=== PATIENT | female | born 1955 | race Caucasian/White ===

== ENCOUNTER 2016-10-11 14:52 | Inpatient (IN) | payer MEDICAID ==
[~2016-10-11] VITALS: Ht 177.8 cm; Wt 65.1 kg
[2016-10-11] MEDS ORDERED: DILTIAZEM 125 MG in DEXTROSE 5% 100 ML IV SCH (15:14)
[2016-10-11] MEDS ORDERED: OXYC10TA6 PO (15:18)
[2016-10-11] MEDS ORDERED: CITA40TA12 PO (15:18)
[2016-10-11] MEDS ORDERED: MORP-52 PO (15:18)
[2016-10-11] MEDS ORDERED: LORazepam 2 MG/ML, 1ML ONE (15:25)
[2016-10-11] MEDS ORDERED: DILTIAZEM 5 MG/ML, 5ML ONE (15:25)
[2016-10-11] MEDS ORDERED: LORazepam 2 MG/ML, 1ML IVPush ONE (15:30)
[2016-10-11] MEDS ORDERED: SODIUM CHLORIDE FLUSH 10ML SYR IVF ONE (15:30)
[2016-10-11] MEDS ORDERED: SODIUM CHLORIDE 0.9% 1,000ML IVBOLUS ONE (15:30)
[2016-10-11] MEDS ORDERED: DILTIAZEM 5 MG/ML, 5ML IV ONE (15:30)
[2016-10-11 15:35] LABS: HEMATOCRIT 45.3 % (34.6-47.8); HEMOGLOBIN 15.1 g/dL (11.7-16.4); WHITE BLOOD COUNT 11.2 x10^3/uL (3.4-10)
[2016-10-11 15:43] LABS: BLOOD UREA NITROGEN 17 mg/dL (7-18)
[2016-10-11 15:48] LABS: ASPARTATE AMINO TRANSFERASE 18 U/L (15-37)
[2016-10-11 15:49] LABS: IS PT STATUS REG ER OR PRE ER? YES
[2016-10-11] MEDS ORDERED: ASPIRIN 325 MG TABLET PO ONE (16:00)
[2016-10-11] MEDS ORDERED: METOCLOPRAMIDE 5 MG/ML, 2ML IVPush ONE (16:00)
[2016-10-11] MEDS ORDERED: ASPIRIN 325 MG TABLET ONE (16:10)
[2016-10-11] MEDS ORDERED: METOCLOPRAMIDE 5 MG/ML, 2ML ONE (16:10)
[2016-10-11] MEDS: OXYcodone IR 5MG TABLET PO SCH ×2 (18:00→21:07)
[2016-10-11] MEDS ORDERED: ONDANSETRON 2MG/ML, 2ML IVPush PRN (18:00)
[2016-10-11] MEDS ORDERED: ONDANSETRON ODT 4 MG PO PRN (18:00)
[2016-10-11] MEDS ORDERED: morphine SULFATE 10 MG/ML, 1ML IVPush PRN (18:00)
[2016-10-11] MEDS ORDERED: BISACODYL 10 MG SUPP PR PRN (18:00)
[2016-10-11] MEDS ORDERED: ACETAMINOPHEN 325 MG TABLET PO PRN (18:00)
[2016-10-11] MEDS ORDERED: LORazepam 1MG TABLET PO PRN (18:00)
[2016-10-11] MEDS ORDERED: NITROGLYCERIN 0.4 MG/SPRAY SL PRN (18:00)
[2016-10-11] MEDS ORDERED: POLYETHYLENE GLYCOL 17 GM PACKET PO PRN (18:00)
[2016-10-11] MEDS ORDERED: DILTIAZEM 5 MG/ML, 5ML IVPush PRN (18:00)
[2016-10-11] MEDS ORDERED: LABETALOL 5MG/ML, 20ML IVPush PRN (18:00)
[2016-10-11] MEDS ORDERED: DOCUSATE 100 MG CAPSULE PO PRN (18:00)
[2016-10-11] MEDS ORDERED: HEPARIN 25,000 UNITS/500ML PMX 500 ML IV PRN (19:30)
[2016-10-11] MEDS ORDERED: HEPARIN 5,000 UNITS/ML, 1ML IV PRN (19:30)
[2016-10-11] MEDS ORDERED: HEPARIN 5,000 UNITS/ML, 1ML IV ONE (19:30)
[2016-10-11 20:04] VITALS: BP 104/68
[2016-10-11 21:24] LABS: IS PT STATUS REG ER OR PRE ER? NO
[2016-10-12 03:04] VITALS: BP 132/73
[2016-10-12 03:41] LABS: HEMATOCRIT 36.7 % (34.6-47.8); HEMOGLOBIN 11.9 g/dL (11.7-16.4); WHITE BLOOD COUNT 7.9 x10^3/uL (3.4-10)
[2016-10-12 03:46] LABS: BLOOD UREA NITROGEN 18 mg/dL (7-18)
[2016-10-12 03:52] LABS: IS PT STATUS REG ER OR PRE ER? NO
[2016-10-12] MEDS: OXYcodone IR 5MG TABLET PO SCH (06:29)
[2016-10-12] MEDS ORDERED: PNEUMOCOCCAL 23 VACCINE IM-VACC ONE (07:30)
[2016-10-12 08:29] VITALS: BP 121/69
[2016-10-12] MEDS ORDERED: CITALOPRAM 20 MG TABLET PO SCH (09:00)
[2016-10-12] MEDS ORDERED: REGADENOSON 0.4 MG/5 ML SYRINGE ONE (10:36)
[2016-10-12] MEDS ORDERED: OXYcodone IR 5MG TABLET PO SCH (12:01)
[2016-10-12 13:51] VITALS: BP 126/69
[2016-10-12] MEDS ORDERED: METOPROLOL TARTRATE 25 MG TABLET PO SCH (15:00)
[2016-10-12] MEDS ORDERED: OXYC10TA6 PO (15:38)
[2016-10-12] MEDS ORDERED: ASPI-621 PO (15:38)
[2016-10-12] MEDS ORDERED: LORA-446 PO (15:38)
[2016-10-12] MEDS ORDERED: METO25TA35 PO (15:38)
[2016-10-13] MEDS ORDERED: ASPIRIN 81 MG TABLET EC PO SCH (06:00)
== END 2016-10-12 17:18 | disposition home or self-care (01) | DRG 309 ==
LOC: ED 16:32 → EDIP 16:58 → 5SO 19:03
PROVIDERS: ADMIT Internal Medicine; ATTEND Internal Medicine
DX: I48.0 Paroxysmal atrial fibrillation (principal); I24.9 Acute ischemic heart disease, unspecified; R07.89 Other chest pain; F32.9 Major depressive disorder, single episode, unspecified; F17.200 Nicotine dependence, unspecified, uncomplicated; M54.89 Other dorsalgia; G89.29 Other chronic pain; Z80.1 Family history of malignant neoplasm of trachea, bronchus and lung; Z82.49 Family history of ischemic heart disease and other diseases of the circulatory system; D72.829 Elevated white blood cell count, unspecified
CPT/HCPCS: 36415; 71010; 78452; 80048; 80053; 80061; 83735; 83880; 84439; 84443; 84484; 85025; 85520; 85610; 85730; 90732; 93005; 93017; 93306; 96361; 96374; 96375; J1644; J2785; A9502; C9898; J2060; J2765; J7030

== ENCOUNTER 2016-11-22 20:03 | Emergency (ER) | payer MEDICAID ==
[~2016-11-22] VITALS: Ht 172.7 cm; Wt 62.0 kg
[~2016-11-22 20:03] MED LIST: ASPI-621 PO; CITA40TA12 PO; LORA-446 PO; METO25TA35 PO; MORP-52 PO; OXYC10TA6 PO
[2016-11-22] MEDS ORDERED: SODIUM CHLORIDE FLUSH 10ML SYR IVF ONE (21:00)
[2016-11-22 21:25] LABS: HEMATOCRIT 43.9 % (34.6-47.8); HEMOGLOBIN 14.7 g/dL (11.7-16.4); WHITE BLOOD COUNT 7.5 x10^3/uL (3.4-10)
[2016-11-22] MEDS ORDERED: SODIUM CHLORIDE 0.9% 1,000ML IVBOLUS ONE (21:30)
[2016-11-22 21:33] LABS: BLOOD UREA NITROGEN 9 mg/dL (7-18)
[2016-11-22 21:37] LABS: IS PT STATUS REG ER OR PRE ER? YES
[2016-11-23 01:06] VITALS: BP 87/55
== END 2016-11-23 03:31 ==
LOC: ED 21:57
DX: R07.89 Other chest pain (principal); I48.91 Unspecified atrial fibrillation
CPT/HCPCS: 36415; 71010; 80048; 80307; 82040; 84484; 85025; 85610; 85730; 93005; 96360; 99285; J7030; G0479

== ENCOUNTER 2017-01-17 05:21 | Emergency (ER) | payer MEDICAID ==
[~2017-01-17] VITALS: Ht 175.3 cm; Wt 57.9 kg
[~2017-01-17 05:21] MED LIST changes: +ENOX60SY4 SC; +ENOX60SY4 SQ; +FOLI-17 PO; +MAGN400T26 PO; +MULT1TAB60 PO; +PANT40TA5 PO; +THIA100T6 PO; +WARF10TA PO-COUM; +WARF5TAB PO-COUM
[2017-01-17 05:24] VITALS: BP 93/54
[2017-01-17] MEDS ORDERED: KETOROLAC 30 MG/1 ML ONE (06:11)
[2017-01-17] MEDS ORDERED: OXYcodone/APAP 5/325MG TABLET ONE (06:11)
[2017-01-17] MEDS ORDERED: OXYcodone/APAP 5/325MG TABLET PO ONE (06:30)
[2017-01-17] MEDS ORDERED: KETOROLAC 30 MG/1 ML IM ONE (06:30)
== END 2017-01-17 06:38 | disposition home or self-care (01) ==
LOC: ED 06:05
DX: M54.5 Low back pain (principal); G89.29 Other chronic pain; I10 Essential (primary) hypertension; I48.91 Unspecified atrial fibrillation
CPT/HCPCS: 99283

== ENCOUNTER 2017-03-05 14:49 | Emergency (ER) | payer MEDICAID ==
[~2017-03-05] VITALS: Ht 177.8 cm; Wt 55.8 kg
[2017-03-05] MEDS ORDERED: SODIUM CHLORIDE 0.9% 1,000 ML IV ONE (15:22)
[2017-03-05] MEDS ORDERED: SODIUM CHLORIDE 0.9% 1,000ML IVBOLUS ONE ×2 (15:30→16:30)
[2017-03-05 16:05] LABS: BASOPHILS # (AUTO) 0.04 x10^3/uL (0-0.1); BASOPHILS % (AUTO) 0 % (0-1); EOSINOPHILS # (AUTO) 0.06 x10^3/uL (0-0.4); EOSINOPHILS % (AUTO) 1 % (1-7); LYMPHOCYTES # (AUTO) 3.36 x10^3/uL (1-3.4); LYMPHOCYTES % (AUTO) 31 % (22-44); MD NO; MEAN CORPUSCULAR HEMOGLOBIN 29.8 pg (27.0-34.8); MEAN CORPUSCULAR HGB CONC 32.8 g/dL (32.4-35.8); MEAN CORPUSCULAR VOLUME 90.8 fL (80-100); MEAN PLATELET VOLUME 8.4 fL (7.4-10.4); MONOCYTES # (AUTO) 1.14 x10^3/uL (0.2-0.8); MONOCYTES % (AUTO) 11 % (2-9); NEUTROPHILS # (AUTO) 6.26 x10^3/uL (1.8-6.8); NEUTROPHILS % (AUTO) 58 % (42-75); PLATELET COUNT 296 x10^3/uL (130-400); RED BLOOD COUNT 5.03 x10^6/uL (3.82-5.3); RED CELL DISTRIBUTION WIDTH 14.4 % (9.6-15.2)
[2017-03-05] MEDS ORDERED: ONDANSETRON 2MG/ML, 2ML ONE (16:12)
[2017-03-05 16:18] LABS: ALANINE AMINOTRANSFERASE 38 U/L (12-78); ALBUMIN 4.3 g/dL (3.4-5.0); ANION GAP 9 mmol/L (5-15); CALCIUM 9.6 mg/dL (8.5-10.1); CHLORIDE 102 mmol/L (98-107); CREATININE 1.11 mg/dL (0.55-1.02)
[2017-03-05 16:22] LABS: ALKALINE PHOSPHATASE 70 U/L (45-117); BILIRUBIN,TOTAL 1.4 mg/dL (0.2-1.0); TOTAL PROTEIN 7.7 g/dL (6.4-8.2); TROPONIN I < 0.015 ng/mL (0.000-0.045)
[2017-03-05] MEDS ORDERED: ONDANSETRON 2MG/ML, 2ML IVPush ONE (16:30)
[2017-03-05] MEDS ORDERED: morphine SULFATE 10 MG/ML, 1ML IVPush ONE (17:00)
[2017-03-05 17:04] LABS: CULTURE INDICATED? YES; MICROSCOPIC INDICATED
[2017-03-05] MEDS ORDERED: MORPHINE SULFATE 4 MG/ML, 1ML ONE (17:06)
[2017-03-05 18:15] VITALS: BP 85/47
== END 2017-03-05 19:10 | disposition left against medical advice (07) ==
LOC: ED 17:11
DX: R11.2 Nausea with vomiting, unspecified (principal); R19.7 Diarrhea, unspecified; I10 Essential (primary) hypertension; I48.91 Unspecified atrial fibrillation; Z86.711 Personal history of pulmonary embolism; R82.99 Other abnormal findings in urine
CPT/HCPCS: 36415; 71045; 71275; 76700; 80053; 81001; 83690; 84484; 85025; 87086; 93005; 96361; 96374; 96375; 99285; J2270; J2405; J7030

== ENCOUNTER 2017-04-15 15:25 | Emergency (ER) | payer MEDICAID ==
[2017-04-15] MEDS ORDERED: LORazepam 1MG TABLET PO ONE (16:00)
[2017-04-15] MEDS ORDERED: PLEASE ENTER HEIGHT AND WEIGHT MC SCH (16:30)
[2017-04-15 16:45] LABS: BASOPHILS # (AUTO) 0.04 x10^3/uL (0-0.1); BASOPHILS % (AUTO) 1 % (0-1); EOSINOPHILS # (AUTO) 0.07 x10^3/uL (0-0.4); EOSINOPHILS % (AUTO) 1 % (1-7); LYMPHOCYTES % (AUTO) 40 % (22-44); MD NO; MEAN CORPUSCULAR HEMOGLOBIN 30.5 pg (27.0-34.8); MEAN CORPUSCULAR HGB CONC 33.4 g/dL (32.4-35.8); MEAN CORPUSCULAR VOLUME 91.3 fL (80-100); MEAN PLATELET VOLUME 9.1 fL (7.4-10.4); MONOCYTES % (AUTO) 9 % (2-9); NEUTROPHILS # (AUTO) 2.73 x10^3/uL (1.8-6.8); NEUTROPHILS % (AUTO) 49 % (42-75); PLATELET COUNT 243 x10^3/uL (130-400); RED BLOOD COUNT 4.86 x10^6/uL (3.82-5.3); RED CELL DISTRIBUTION WIDTH 14.4 % (9.6-15.2)
[2017-04-15] MEDS ORDERED: LORazepam 1MG TABLET ONE (16:53)
[2017-04-15 16:59] LABS: ALBUMIN 3.6 g/dL (3.4-5.0); ANION GAP 8 mmol/L (5-15); CALCIUM 8.1 mg/dL (8.5-10.1); CHLORIDE 113 mmol/L (98-107); SALICYLATE LEVEL 4.6 mg/dL (2.8-20.0)
[2017-04-15 17:05] LABS: CREATININE 0.86 mg/dL (0.55-1.02); TROPONIN I < 0.015 ng/mL (0.000-0.045)
[2017-04-15 17:05] LABS: AMPHETAMINE SCREEN, URINE Negative (Negative); BARBITURATE SCREEN, URINE Negative (Negative); BENZODIAZEPINE SCREEN, URINE Negative (Negative); CANNABINOID SCREEN, URINE Negative (Negative); COCAINE SCREEN, URINE Negative (Negative); METHADONE SCREEN, URINE Negative (Negative); OPIATE SCREEN, URINE Negative (Negative)
[2017-04-15 17:11] LABS: ACETAMINOPHEN < 2 mcg/mL (10-30)
[2017-04-15 17:39] VITALS: BP 117/70
== END 2017-04-15 21:33 | disposition home or self-care (01) ==
LOC: ED 21:31
DX: F32.9 Major depressive disorder, single episode, unspecified (principal); R07.2 Precordial pain; Z79.899 Other long term (current) drug therapy; I10 Essential (primary) hypertension; I48.91 Unspecified atrial fibrillation
CPT/HCPCS: 36415; 71045; 80048; 80307; 80329; 82040; 84484; 85025; 93005; 99285; G0480

== ENCOUNTER 2017-05-13 19:30 | Emergency (ER) | payer MEDICAID ==
[~2017-05-13] VITALS: Ht 175.3 cm; Wt 65.0 kg
[2017-05-13 19:33] VITALS: BP 123/72
[2017-05-13 20:08] LABS: BASOPHILS # (AUTO) 0.04 x10^3/uL (0-0.1); BASOPHILS % (AUTO) 0 % (0-1); EOSINOPHILS # (AUTO) 0.05 x10^3/uL (0-0.4); EOSINOPHILS % (AUTO) 1 % (1-7); LYMPHOCYTES # (AUTO) 2.75 x10^3/uL (1-3.4); LYMPHOCYTES % (AUTO) 31 % (22-44); MD NO; MEAN CORPUSCULAR HEMOGLOBIN 30.4 pg (27.0-34.8); MEAN CORPUSCULAR HGB CONC 33.6 g/dL (32.4-35.8); MEAN CORPUSCULAR VOLUME 90.4 fL (80-100); MEAN PLATELET VOLUME 9.1 fL (7.4-10.4); MONOCYTES # (AUTO) 1.17 x10^3/uL (0.2-0.8); MONOCYTES % (AUTO) 13 % (2-9); NEUTROPHILS # (AUTO) 4.98 x10^3/uL (1.8-6.8); NEUTROPHILS % (AUTO) 55 % (42-75); PLATELET COUNT 231 x10^3/uL (130-400); RED BLOOD COUNT 4.66 x10^6/uL (3.82-5.3); RED CELL DISTRIBUTION WIDTH 13.6 % (9.6-15.2)
[2017-05-13 20:20] LABS: ALANINE AMINOTRANSFERASE 11 U/L (12-78); ALBUMIN 3.8 g/dL (3.4-5.0); ANION GAP 8 mmol/L (5-15); CALCIUM 8.8 mg/dL (8.5-10.1); CHLORIDE 104 mmol/L (98-107); CREATININE 0.93 mg/dL (0.55-1.02)
[2017-05-13 20:22] LABS: ALKALINE PHOSPHATASE 60 U/L (45-117); BILIRUBIN,TOTAL 0.6 mg/dL (0.2-1.0); TOTAL PROTEIN 6.9 g/dL (6.4-8.2)
== END 2017-05-13 21:15 | disposition left against medical advice (07) ==
LOC: ED 20:50
DX: S16.1XXA Strain of muscle, fascia and tendon at neck level, initial encounter (principal); M54.6 Pain in thoracic spine; R51 Headache; G89.29 Other chronic pain; M54.5 Low back pain; I10 Essential (primary) hypertension; I48.91 Unspecified atrial fibrillation; F32.9 Major depressive disorder, single episode, unspecified; F41.9 Anxiety disorder, unspecified; V89.2XXA Person injured in unspecified motor-vehicle accident, traffic, initial encounter; Y93.89 Activity, other specified; Y99.8 Other external cause status; Y92.410 Unspecified street and highway as the place of occurrence of the external cause
CPT/HCPCS: 36415; 70450; 72072; 72125; 80053; 85025; 99285

== ENCOUNTER 2017-11-11 17:39 | Emergency (ER) | payer MEDICAID ==
[~2017-11-11] VITALS: Ht 175.3 cm; Wt 53.0 kg
[~2017-11-11 17:39] MED LIST changes: -THIA100T6 PO; +THIA100T67 PO
[2017-11-11 17:57] VITALS: BP 106/58
[2017-11-11] MEDS ORDERED: PROCHLORPERAZINE 5 MG/ML, 2ML IVPush ONE (18:00)
[2017-11-11] MEDS ORDERED: DIPHENHYDRAMINE 50 MG/ML, 1ML IVPush ONE (18:00)
[2017-11-11] MEDS ORDERED: SODIUM CHLORIDE 0.9% 1,000ML IVBOLUS ONE (18:00)
[2017-11-11] MEDS ORDERED: OXYcodone/APAP 10/325MG TABLET ONE (19:25)
[2017-11-11] MEDS ORDERED: CYCLOBENZAPRINE 10 MG TABLET ONE (19:25)
[2017-11-11] MEDS ORDERED: CYCLOBENZAPRINE 10 MG TABLET PO ONE (19:30)
[2017-11-11] MEDS ORDERED: OXYcodone/APAP 10/325MG TABLET PO ONE (19:30)
== END 2017-11-11 19:59 | disposition home or self-care (01) ==
LOC: ED 19:53
DX: S70.02XA Contusion of left hip, initial encounter (principal); I10 Essential (primary) hypertension; F17.200 Nicotine dependence, unspecified, uncomplicated; W18.39XA Other fall on same level, initial encounter; Y93.89 Activity, other specified; Y92.098 Other place in other non-institutional residence as the place of occurrence of the external cause; Y99.8 Other external cause status
CPT/HCPCS: 99284

== ENCOUNTER 2018-03-14 17:08 | Emergency (ER) | payer MEDICAID, MEDICARE ==
[~2018-03-14] VITALS: Ht 162.6 cm; Wt 54.0 kg
[~2018-03-14 17:08] MED LIST changes: -ASPI-621 PO; +ASPI81TA45 PO
[2018-03-14 17:24] VITALS: BP 119/69
[2018-03-14] MEDS ORDERED: ACETAMINOPHEN 500 MG TABLET PO ONE (17:30)
[2018-03-14] MEDS ORDERED: METOCLOPRAMIDE 10MG TABLET PO PRN (17:30)
[2018-03-14] MEDS ORDERED: SODIUM CHLORIDE FLUSH 10ML SYR IVF ONE (17:30)
[2018-03-14 17:48] LABS: BASOPHILS # (AUTO) 0.02 x10^3/uL (0-0.1); BASOPHILS % (AUTO) 0 % (0-1); EOSINOPHILS # (AUTO) 0.13 x10^3/uL (0-0.4); EOSINOPHILS % (AUTO) 2 % (1-7); LYMPHOCYTES # (AUTO) 1.89 x10^3/uL (1-3.4); LYMPHOCYTES % (AUTO) 21 % (22-44); MD NO; MEAN CORPUSCULAR HEMOGLOBIN 30.6 pg (27.0-34.8); MEAN CORPUSCULAR HGB CONC 33.5 g/dL (32.4-35.8); MEAN CORPUSCULAR VOLUME 91.2 fL (80-100); MEAN PLATELET VOLUME 8.5 fL (7.4-10.4); MONOCYTES # (AUTO) 0.78 x10^3/uL (0.2-0.8); MONOCYTES % (AUTO) 9 % (2-9); NEUTROPHILS # (AUTO) 6.07 x10^3/uL (1.8-6.8); NEUTROPHILS % (AUTO) 68 % (42-75); PLATELET COUNT 280 x10^3/uL (130-400); RED CELL DISTRIBUTION WIDTH 13.7 % (9.6-15.2)
[2018-03-14 17:57] LABS: ALBUMIN 3.4 g/dL (3.4-5.0); ANION GAP 5 mmol/L (5-15); CALCIUM 8.1 mg/dL (8.5-10.1); CHLORIDE 110 mmol/L (98-107)
[2018-03-14 18:03] LABS: D-DIMER 0.24 ug/mlFEU (0.00-0.52); INTERNATIONAL NORMALIZED RATIO 0.89 (0.93-1.1); PROTHROMBIN TIME 9.5 Seconds (9.6-11.5)
[2018-03-14 18:04] LABS: ALANINE AMINOTRANSFERASE 39 U/L (12-78); ALKALINE PHOSPHATASE 97 U/L (45-117); BILIRUBIN,TOTAL 0.2 mg/dL (0.2-1.0); CREATININE 0.68 mg/dL (0.55-1.02); TOTAL PROTEIN 6.5 g/dL (6.4-8.2); TROPONIN I < 0.015 ng/mL (0.000-0.045)
== END 2018-03-14 18:30 | disposition home or self-care (01) ==
LOC: ED 18:10
DX: R00.2 Palpitations (principal); R42 Dizziness and giddiness; I10 Essential (primary) hypertension; I48.91 Unspecified atrial fibrillation; F32.9 Major depressive disorder, single episode, unspecified; F17.210 Nicotine dependence, cigarettes, uncomplicated
CPT/HCPCS: 36415; 71045; 80053; 83735; 84484; 85025; 85379; 85610; 85730; 93005; 99284

== ENCOUNTER 2018-03-28 06:50 | Emergency (ER) | payer MEDICARE ==
[~2018-03-28] VITALS: Ht 172.7 cm; Wt 53.4 kg
--- NOTE | 2018-03-28 07:10 | NUR ---
First contact with pt. Pt states, "I have a light laser vision in my right eye. It started last night. I thought I was seeing an airplane, but I can recreate it now. I have got a headache. It's not severe, but it does hurt. I don't know if I have a detached retina or what. I also keep loosing weight and I don't know why. June I weighed a 135 (lbs.) but I am gradually loosing weight." TRESN. Pt resting on gurney connected to NIBP and continous pulse ox. All safety measures in place. No needs expressed at this time.
[2018-03-28] MEDS ORDERED: METO25TA35 PO (07:20)
[2018-03-28] MEDS ORDERED: KETOROLAC 30 MG/1 ML ONE (08:24)
[2018-03-28] MEDS ORDERED: PROMETHAZINE 25 MG/ML, 1ML ONE (08:24)
[2018-03-28] MEDS ORDERED: PROMETHAZINE 25 MG/ML, 1ML IM ONE (08:30)
[2018-03-28] MEDS ORDERED: KETOROLAC 30 MG/1 ML IM ONE (08:30)
[2018-03-28] MEDS ORDERED: CYCLOPENTOLATE OPHTH SOLN 1%, 15ML RIGHTEYE SCH (10:00)
[2018-03-28] MEDS ORDERED: PHENYLEPHRINE OPHTH 2.5%, 2.5ML RIGHTEYE ONE (10:00)
--- NOTE | 2018-03-28 10:15 | NUR ---
assumed care of pt. report from Brittany MARIE. pt here for bright liht in her vision with GUTIÉRREZ. Opthomologist at bedside for eval. pt refused toradol but has been medicated with phenergan. no family at bedside. lights dimmed for comfort
[2018-03-28 10:59] VITALS: BP 110/65
== END 2018-03-28 11:29 | disposition home or self-care (01) ==
LOC: ED 08:29
DX: R51 Headache (principal); H53.8 Other visual disturbances; I48.91 Unspecified atrial fibrillation; I10 Essential (primary) hypertension; Z85.3 Personal history of malignant neoplasm of breast; Z72.9 Problem related to lifestyle, unspecified; Z79.899 Other long term (current) drug therapy; F32.9 Major depressive disorder, single episode, unspecified
CPT/HCPCS: 70450; 71046; 96372; 99284; J2550

== ENCOUNTER 2020-07-09 23:32 | Emergency (ER) | payer MEDICARE ==
[~2020-07-09] VITALS: Ht 177.8 cm; Wt 58.0 kg
[~2020-07-09 23:32] MED LIST changes: -FOLI-17 PO; +FOLI1TAB32 PO; +MULT-449 PO; -MULT1TAB60 PO; -PANT40TA5 PO; +PANT40TA6 PO; -WARF5TAB PO-COUM; +WARF5TAB2 PO-COUM
[2020-07-09 23:37] VITALS: BP 133/82
--- NOTE | 2020-07-09 23:55 | NUR ---
Pt arrived with complaints of worsening chronic back pain since she's recieved her COVID vaccine yesterday, this is dose 1 of 2. Pt also states that she had COVID in [facility]. DR PEREZ at bedside to discuss POC, pt connected to BP and O2 monitors, TROY JAQUEZ
[2020-07-10] MEDS ORDERED: HYDROcodone/APAP 5/325 TABLET PO ONE
[2020-07-10] MEDS ORDERED: HYDROcodone/APAP 5/325 TABLET ONE (00:03)
[2020-07-10 00:10] LABS: BASOPHILS % (AUTO) 1 % (0-1); EOSINOPHILS % (AUTO) 2 % (1-7); LYMPHOCYTES % (AUTO) 17 % (22-44); MEAN CORPUSCULAR HEMOGLOBIN 32.1 pg (27.0-34.8); MEAN CORPUSCULAR HGB CONC 34.2 g/dL (32.4-35.8); MEAN PLATELET VOLUME 8.2 fL (7.4-10.4); MONOCYTES % (AUTO) 17 % (2-9); NEUTROPHILS % (AUTO) 64 % (42-75); PLATELET COUNT 223 x10^3/uL (130-400); RED BLOOD COUNT 4.43 x10^6/uL (3.82-5.3); RED CELL DISTRIBUTION WIDTH 13.1 % (9.6-15.2)
[2020-07-10 00:18] LABS: MD NO
[2020-07-10 00:21] LABS: ANION GAP 5 mmol/L (5-15); C-REACTIVE PROTEIN, QUANT 0.61 mg/dL (0.02-0.49); CALCIUM 8.4 mg/dL (8.5-10.1); CHLORIDE 108 mmol/L (98-107); CREATININE 0.84 mg/dL (0.55-1.02)
== END 2020-07-10 01:20 | disposition home or self-care (01) ==
LOC: ED 07-10 01:09
DX: M25.59 Pain in other specified joint (principal); M54.9 Dorsalgia, unspecified; I10 Essential (primary) hypertension; I48.91 Unspecified atrial fibrillation
CPT/HCPCS: 36415; 80048; 85025; 86140; 99284